=== PATIENT | female | born 1935 | race Caucasian/White ===

== ENCOUNTER → 2019-10-17 | Outpatient (CLI) | payer MEDICARE ==
--- NOTE | 2019-10-17 13:29 | Diagnostic Imaging Report ---
EXAM: Renal Ultrasound INDICATION: ^[id number] ^[id number] ^CKD COMPARISON: None TECHNIQUE: Transverse and longitudinal images of the kidneys and bladder were obtained. FINDINGS: Right Kidney: Length: 9.5 cm Appearance: Normal echogenicity. Collecting system: No hydronephrosis Stones: None Cyst/Mass: Lower pole 4.4 x 5.0 x 4.3 cm anechoic simple cyst. Upper pole 3.0 x 2.7 x 3.7 cm anechoic simple cyst. Left Kidney: Length: 9.1 cm Appearance: Normal echogenicity. Collecting system: No hydronephrosis Stones: None Cyst/Mass: None Bladder: No mass or calculi. Bilateral ureteral jets visualized. Prevoid volume estimate of 26 cc. Postvoid images demonstrate complete bladder emptying. IMPRESSION: No hydronephrosis or renal calculi. Right lower pole simple cysts. Signed by: Munira Steven MD on 10/17/2019 1:26 PM
== END ==
LOC: US 12:29
PROVIDERS: ATTEND Internal Medicine Nephrology
DX: N18.9 Chronic kidney disease, unspecified (principal)
CPT/HCPCS: 76770; 76857